=== PATIENT | male | born 1960 | race Caucasian/White ===

== ENCOUNTER 2020-07-10 12:16 | Inpatient (IN) | payer MEDICARE, MEDICAID ==
[~2020-07-10] VITALS: Ht 162.6 cm; Wt 55.8 kg
[~2020-07-10 12:16] MED LIST: ABIL10 PO; ASPI-1497 PO; ATEN50TA PO; BENA20TA10 PO; CLON0.2T PO; DOCU-150 PO; GLIP10TA10 MT; HYDR100T26 PO; LEVE500T19 PO; OMEP20CA14 PO; PARO40TA PO; PHEN100C12 PO; PRAV40TA58 PO; SEVE800T8 PO; VENL37.586 PO
[2020-07-10] MEDS ORDERED: SODIUM CHLORIDE 0.9% 1,000 ML IV ONE (12:45)
[2020-07-10 13:44] LABS: BASOPHILS % 0.6 % (0.0-2.0); EOSINOPHILS % 0.1 % (0.0-5.0); MEAN CORPUSCULAR HEMOGLOBIN 32.2 pg (28.0-32.0); MEAN CORPUSCULAR VOLUME 96.7 fL (80.0-94.0); MEAN PLATELET VOLUME 10.2 fl (7.4-10.4); MONOCYTES % 5.7 % (2.0-8.0); NEUTROPHILS % 85.6 % (40.0-76.0); PLATELET 130 x1000/uL (130-400); RED BLOOD CELL COUNT 2.03 mill/uL (4.7-6.1); RED CELL DISTRIBUTION WIDTH 16.6 % (11.6-14.6)
[2020-07-10 13:47] LABS: CHLORIDE 89 mEq/L (98-107)
[2020-07-10 13:54] LABS: INR 3.5; PROTHROMBIN TIME 34.5 sec (9.6-11.0)
[2020-07-10 14:06] LABS: HEMATOCRIT. 19.6 % (42.0-52.0); HEMOGLOBIN. 6.6 g/dL (14.0-18.0)
[2020-07-10] MEDS ORDERED: LEVOFLOXACIN 500MG PREMIX 100 ML IV ONE (15:30)
[2020-07-10 17:35] VITALS: BP 93/52
[2020-07-10] MEDS ORDERED: MAGNESIUM/ALUMINUM HYDROXIDE/SIMETHICONE 30ML UDC PO PRN (18:45)
[2020-07-10] MEDS ORDERED: DIPHENHYDRAMINE 50MG/ML VIAL IV PRN (18:45)
[2020-07-10] MEDS ORDERED: ACETAMINOPHEN 325MG TABLET PO PRN ×2 (18:45)
[2020-07-10] MEDS ORDERED: ZOLPIDEM TARTRATE 5MG TABLET PO PRN (18:45)
[2020-07-10] MEDS ORDERED: DEXTROSE 50% WATER 50ML SYRINGE IV PRN (18:45)
[2020-07-10] MEDS ORDERED: ONDANSETRON HCL 4MG/2ML INJ IV PRN (18:45)
[2020-07-10 20:00] VITALS: BP 138/67
[2020-07-10] MEDS ORDERED: EPOETIN ALFA-EPBX 4,000 UNIT/ML VIAL SUBCUT SCH (21:00)
[2020-07-10] MEDS: OMEPRAZOLE 20MG CAPSULE EXTENDED RELEASE PO SCH (21:48)
[2020-07-10] MEDS: LEVETIRACETAM 500MG/5ML CUP PO SCH (21:48)
[2020-07-10] MEDS: PHENYTOIN SODIUM EXTENDED 100MG CAPSULE PO SCH (21:48)
[2020-07-10] MEDS: BLOOD SUGAR DIAGNOSTIC STRIP TEST SCH (21:58)
[2020-07-10] MEDS: INSULIN LISPRO 100 UNITS/ML SUBCUT SCH (22:14)
[2020-07-10] MEDS: SODIUM CHLORIDE 0.9% INJ 3ML FLUSH IVF SCH (22:16)
[2020-07-11] VITALS (12 sets, daily range): BP systolic 130–164; BP diastolic 53–77
[2020-07-11 05:04] LABS: CHLORIDE 92 mEq/L (98-107)
[2020-07-11] MEDS: OMEPRAZOLE 20MG CAPSULE EXTENDED RELEASE PO SCH ×2 (06:18→22:12)
[2020-07-11] MEDS: PHENYTOIN SODIUM EXTENDED 100MG CAPSULE PO SCH ×3 (06:18→22:12)
[2020-07-11] MEDS: SEVELAMER CARBONATE 800 MG TABLET PO SCH ×3 (06:18→17:11)
[2020-07-11] MEDS: BLOOD SUGAR DIAGNOSTIC STRIP TEST SCH ×4 (06:19→22:13)
[2020-07-11] MEDS: SODIUM CHLORIDE 0.9% INJ 3ML FLUSH IVF SCH ×3 (06:21→22:13)
[2020-07-11 06:50] LABS: BASOPHILS % 0.4 % (0.0-2.0); EOSINOPHILS % 0.3 % (0.0-5.0); LYMPHOCYTES % 8.1 % (20.0-50.0); MEAN CORPUSCULAR VOLUME 94.9 fL (80.0-94.0); MEAN PLATELET VOLUME 9.8 fl (7.4-10.4); NEUTROPHILS % 87.2 % (40.0-76.0); PLATELET 130 x1000/uL (130-400); RED BLOOD CELL COUNT 2.03 mill/uL (4.7-6.1); RED CELL DISTRIBUTION WIDTH 16.4 % (11.6-14.6)
[2020-07-11 06:57] LABS: HEMATOCRIT. 19.2 % (42.0-52.0); HEMOGLOBIN. 6.5 g/dL (14.0-18.0)
[2020-07-11] MEDS: INSULIN LISPRO 100 UNITS/ML SUBCUT SCH ×4 (07:10→21:00)
[2020-07-11] MEDS: PAROXETINE HCL 10MG TABLET PO SCH (08:41)
[2020-07-11] MEDS: LEVETIRACETAM 500MG/5ML CUP PO SCH ×2 (08:41→22:13)
[2020-07-11] MEDS: ARIPIPRAZOLE 5MG TABLET PO SCH (08:42)
[2020-07-11] MEDS: VENLAFAXINE HCL 37.5MG SR CAPSULE 24HR PO SCH (08:42)
[2020-07-11] MEDS ORDERED: CEFTRIAXONE 1 G PREMIX 50 ML IV SCH (18:15)
[2020-07-11] MEDS ORDERED: DEXAMETHASONE 10 MG/ML VIAL IV SCH (18:30)
[2020-07-11] MEDS: DEXAMETHASONE 10 MG/ML VIAL IV SCH ×2 (18:48→22:12)
[2020-07-11] MEDS: CLONIDINE 0.1MG TABLET PO PRN (22:12)
[2020-07-11] MEDS: AZITHROMYCIN 500 MG in DEXT 5% WATER 250 ML IV SCH (22:14)
[2020-07-12] VITALS: BP 153/73
[2020-07-12 04:00] VITALS: BP 149/70
[2020-07-12] MEDS: SODIUM CHLORIDE 0.9% INJ 3ML FLUSH IVF SCH ×3 (05:22→23:51)
[2020-07-12] MEDS: PHENYTOIN SODIUM EXTENDED 100MG CAPSULE PO SCH ×3 (06:06→23:51)
[2020-07-12] MEDS: SEVELAMER CARBONATE 800 MG TABLET PO SCH ×3 (06:24→16:27)
[2020-07-12] MEDS: OMEPRAZOLE 20MG CAPSULE EXTENDED RELEASE PO SCH ×2 (06:24→21:23)
[2020-07-12] MEDS: BLOOD SUGAR DIAGNOSTIC STRIP TEST SCH ×4 (06:24→21:25)
[2020-07-12] MEDS: INSULIN LISPRO 100 UNITS/ML SUBCUT SCH ×4 (06:25→21:24)
[2020-07-12 07:29] LABS: HEMATOCRIT 33.7 % (42.0-52.0); HEMOGLOBIN 11.1 g/dL (14.0-18.0); MEAN CORPUSCULAR HEMOGLOBIN 30.7 pg (28.0-32.0); MEAN CORPUSCULAR VOLUME 93.2 fL (80.0-94.0); PLATELET 130 x1000/uL (130-400); RED BLOOD CELL COUNT 3.62 mill/uL (4.7-6.1); RED CELL DISTRIBUTION WIDTH 18.8 % (11.6-14.6)
[2020-07-12 08:00] VITALS: BP 155/76
[2020-07-12] MEDS: ARIPIPRAZOLE 5MG TABLET PO SCH (08:04)
[2020-07-12] MEDS: LEVETIRACETAM 500MG/5ML CUP PO SCH ×2 (08:04→21:23)
[2020-07-12] MEDS: VENLAFAXINE HCL 37.5MG SR CAPSULE 24HR PO SCH (08:04)
[2020-07-12] MEDS: PAROXETINE HCL 10MG TABLET PO SCH (08:04)
[2020-07-12 12:00] VITALS: BP 163/72
[2020-07-12] MEDS: CLONIDINE 0.1MG TABLET PO PRN (13:26)
[2020-07-12 16:00] VITALS: BP 138/72
[2020-07-12 20:00] VITALS: BP 100/45
[2020-07-12] MEDS ORDERED: EPOETIN ALFA-EPBX 10,000 UNIT/ML VIAL SUBCUT SCH (21:00)
[2020-07-12] MEDS: AZITHROMYCIN 500 MG in DEXT 5% WATER 250 ML IV SCH (21:23)
[2020-07-12] MEDS: DEXAMETHASONE 10 MG/ML VIAL IV SCH (21:23)
[2020-07-13] VITALS (7 sets, daily range): BP systolic 101–188; BP diastolic 20–81
[2020-07-13] MEDS: PHENYTOIN SODIUM EXTENDED 100MG CAPSULE PO SCH ×3 (05:52→21:13)
[2020-07-13] MEDS: SODIUM CHLORIDE 0.9% INJ 3ML FLUSH IVF SCH ×3 (05:52→21:13)
[2020-07-13] MEDS: OMEPRAZOLE 20MG CAPSULE EXTENDED RELEASE PO SCH ×2 (05:53→21:12)
[2020-07-13] MEDS: INSULIN LISPRO 100 UNITS/ML SUBCUT SCH ×4 (05:53→21:00)
[2020-07-13] MEDS: BLOOD SUGAR DIAGNOSTIC STRIP TEST SCH ×4 (05:53→21:13)
[2020-07-13] MEDS: SEVELAMER CARBONATE 800 MG TABLET PO SCH ×3 (06:25→17:04)
[2020-07-13] MEDS: ARIPIPRAZOLE 5MG TABLET PO SCH (08:41)
[2020-07-13] MEDS: PAROXETINE HCL 10MG TABLET PO SCH (08:41)
[2020-07-13] MEDS: LEVETIRACETAM 500MG/5ML CUP PO SCH ×2 (08:41→21:13)
[2020-07-13] MEDS: VENLAFAXINE HCL 37.5MG SR CAPSULE 24HR PO SCH (08:41)
[2020-07-13] MEDS: CLONIDINE 0.1MG TABLET PO PRN (08:42)
[2020-07-13] MEDS: ALBUTEROL 6.7GM HFA INHALER ORI SCH ×3 (13:34→19:00)
[2020-07-13] MEDS: DEXAMETHASONE 10 MG/ML VIAL IV SCH (21:13)
[2020-07-13] MEDS: AZITHROMYCIN 500 MG TABLET PO SCH (21:13)
[2020-07-14] MEDS: ALBUTEROL 6.7GM HFA INHALER ORI SCH ×4 (01:31→17:49)
[2020-07-14 04:00] VITALS: BP 120/34
[2020-07-14] MEDS: PHENYTOIN SODIUM EXTENDED 100MG CAPSULE PO SCH ×3 (06:17→21:18)
[2020-07-14] MEDS: OMEPRAZOLE 20MG CAPSULE EXTENDED RELEASE PO SCH ×2 (06:17→21:05)
[2020-07-14] MEDS: SEVELAMER CARBONATE 800 MG TABLET PO SCH ×3 (06:17→17:41)
[2020-07-14] MEDS: BLOOD SUGAR DIAGNOSTIC STRIP TEST SCH ×4 (06:17→21:06)
[2020-07-14] MEDS: SODIUM CHLORIDE 0.9% INJ 3ML FLUSH IVF SCH ×3 (06:18→21:18)
[2020-07-14] MEDS: INSULIN LISPRO 100 UNITS/ML SUBCUT SCH ×4 (06:29→21:00)
[2020-07-14 08:00] VITALS: BP 137/33
[2020-07-14] MEDS: PAROXETINE HCL 10MG TABLET PO SCH (09:13)
[2020-07-14] MEDS: LEVETIRACETAM 500MG/5ML CUP PO SCH ×2 (09:13→21:05)
[2020-07-14] MEDS: VENLAFAXINE HCL 37.5MG SR CAPSULE 24HR PO SCH (09:14)
[2020-07-14] MEDS: ARIPIPRAZOLE 5MG TABLET PO SCH (09:14)
[2020-07-14 12:00] VITALS: BP 131/27
[2020-07-14 16:00] VITALS: BP 121/36
[2020-07-14 20:00] VITALS: BP 150/76
[2020-07-14] MEDS: DEXAMETHASONE 10 MG/ML VIAL IV SCH (21:05)
[2020-07-14] MEDS: AZITHROMYCIN 500 MG TABLET PO SCH (21:05)
[2020-07-15] VITALS: BP 150/94
[2020-07-15 04:00] VITALS: BP 156/66
[2020-07-15] MEDS: ALBUTEROL 6.7GM HFA INHALER ORI SCH ×4 (06:00→16:51)
[2020-07-15] MEDS: SODIUM CHLORIDE 0.9% INJ 3ML FLUSH IVF SCH ×3 (06:00→21:57)
[2020-07-15] MEDS: INSULIN LISPRO 100 UNITS/ML SUBCUT SCH ×4 (06:03→21:58)
[2020-07-15] MEDS: BLOOD SUGAR DIAGNOSTIC STRIP TEST SCH ×4 (06:03→21:58)
[2020-07-15] MEDS: PHENYTOIN SODIUM EXTENDED 100MG CAPSULE PO SCH ×3 (06:15→21:57)
[2020-07-15] MEDS: SEVELAMER CARBONATE 800 MG TABLET PO SCH ×3 (06:15→16:50)
[2020-07-15] MEDS: OMEPRAZOLE 20MG CAPSULE EXTENDED RELEASE PO SCH ×2 (06:15→21:57)
[2020-07-15 08:00] VITALS: BP 128/30
[2020-07-15] MEDS: VENLAFAXINE HCL 37.5MG SR CAPSULE 24HR PO SCH (09:11)
[2020-07-15] MEDS: ARIPIPRAZOLE 5MG TABLET PO SCH (09:11)
[2020-07-15] MEDS: LEVETIRACETAM 500MG/5ML CUP PO SCH ×2 (09:11→21:57)
[2020-07-15] MEDS: PAROXETINE HCL 10MG TABLET PO SCH (09:11)
[2020-07-15 12:00] VITALS: BP 165/86
[2020-07-15] MEDS: CLONIDINE 0.1MG TABLET PO PRN (13:18)
[2020-07-15 16:00] VITALS: BP 152/38
[2020-07-15 20:00] VITALS: BP 150/72
[2020-07-15] MEDS: DEXAMETHASONE 10 MG/ML VIAL IV SCH (21:56)
[2020-07-15] MEDS: AZITHROMYCIN 500 MG TABLET PO SCH (21:57)
[2020-07-16 00:05] VITALS: BP 165/81
[2020-07-16] MEDS: CLONIDINE 0.1MG TABLET PO PRN ×2 (00:42→21:05)
[2020-07-16] MEDS: ALBUTEROL 6.7GM HFA INHALER ORI SCH ×4 (00:44→17:19)
[2020-07-16 04:00] VITALS: BP 153/70
[2020-07-16] MEDS: PHENYTOIN SODIUM EXTENDED 100MG CAPSULE PO SCH ×3 (06:23→21:03)
[2020-07-16] MEDS: OMEPRAZOLE 20MG CAPSULE EXTENDED RELEASE PO SCH ×2 (06:23→21:03)
[2020-07-16] MEDS: SEVELAMER CARBONATE 800 MG TABLET PO SCH ×3 (06:23→17:18)
[2020-07-16] MEDS: SODIUM CHLORIDE 0.9% INJ 3ML FLUSH IVF SCH ×3 (06:25→21:03)
[2020-07-16] MEDS: INSULIN LISPRO 100 UNITS/ML SUBCUT SCH ×4 (06:25→21:23)
[2020-07-16] MEDS: BLOOD SUGAR DIAGNOSTIC STRIP TEST SCH ×4 (06:26→21:03)
[2020-07-16 08:00] VITALS: BP 107/23
[2020-07-16] MEDS: PAROXETINE HCL 10MG TABLET PO SCH (08:45)
[2020-07-16] MEDS: LEVETIRACETAM 500MG/5ML CUP PO SCH ×2 (08:45→21:03)
[2020-07-16] MEDS: VENLAFAXINE HCL 37.5MG SR CAPSULE 24HR PO SCH (08:45)
[2020-07-16] MEDS: ARIPIPRAZOLE 5MG TABLET PO SCH (08:45)
[2020-07-16 12:00] VITALS: BP 137/40
[2020-07-16 16:00] VITALS: BP 139/29
[2020-07-16 20:00] VITALS: BP 164/77
[2020-07-16] MEDS: DEXAMETHASONE 10 MG/ML VIAL IV SCH (21:03)
[2020-07-17] VITALS: BP 152/84
[2020-07-17] MEDS: ALBUTEROL 6.7GM HFA INHALER ORI SCH ×4 (00:03→19:11)
[2020-07-17 04:00] VITALS: BP 158/79
[2020-07-17] MEDS: PHENYTOIN SODIUM EXTENDED 100MG CAPSULE PO SCH ×3 (05:52→21:19)
[2020-07-17] MEDS: SODIUM CHLORIDE 0.9% INJ 3ML FLUSH IVF SCH ×3 (05:52→21:19)
[2020-07-17] MEDS: BLOOD SUGAR DIAGNOSTIC STRIP TEST SCH ×4 (05:53→21:10)
[2020-07-17] MEDS: OMEPRAZOLE 20MG CAPSULE EXTENDED RELEASE PO SCH ×2 (05:53→21:19)
[2020-07-17] MEDS: SEVELAMER CARBONATE 800 MG TABLET PO SCH ×3 (06:08→16:55)
[2020-07-17] MEDS: INSULIN LISPRO 100 UNITS/ML SUBCUT SCH ×4 (06:08→21:18)
[2020-07-17 06:17] LABS: CHLORIDE 96 mEq/L (98-107)
[2020-07-17 06:20] LABS: HEMATOCRIT. 31.7 % (42.0-52.0); HEMOGLOBIN. 10.3 g/dL (14.0-18.0); MEAN CORPUSCULAR HEMOGLOBIN 30.2 pg (28.0-32.0); MEAN PLATELET VOLUME 8.8 fl (7.4-10.4); PLATELET 164 x1000/uL (130-400); RED BLOOD CELL COUNT 3.41 mill/uL (4.7-6.1); RED CELL DISTRIBUTION WIDTH 18.5 % (11.6-14.6)
[2020-07-17 08:00] VITALS: BP 142/37
[2020-07-17] MEDS: LEVETIRACETAM 500MG/5ML CUP PO SCH ×2 (08:28→21:18)
[2020-07-17] MEDS: PAROXETINE HCL 10MG TABLET PO SCH (08:29)
[2020-07-17] MEDS: VENLAFAXINE HCL 37.5MG SR CAPSULE 24HR PO SCH (08:29)
[2020-07-17] MEDS: ARIPIPRAZOLE 5MG TABLET PO SCH (08:29)
[2020-07-17 11:55] LABS: NUCLEATED RED BLOOD CELLS 1 /100 WBC; PLATELET ESTIMATE NORMAL
[2020-07-17 12:00] VITALS: BP 132/22
[2020-07-17] MEDS ORDERED: BISACODYL 10MG SUPP PR NR (15:30)
[2020-07-17 16:00] VITALS: BP 114/23
[2020-07-17 20:00] VITALS: BP 147/58
[2020-07-17] MEDS: DEXAMETHASONE 10 MG/ML VIAL IV SCH (21:19)
[2020-07-18] VITALS (7 sets, daily range): BP systolic 151–173; BP diastolic 73–86
[2020-07-18] MEDS: CLONIDINE 0.1MG TABLET PO PRN ×3 (00:28→08:44)
[2020-07-18] MEDS: ALBUTEROL 6.7GM HFA INHALER ORI SCH ×4 (00:29→17:01)
[2020-07-18] MEDS: PHENYTOIN SODIUM EXTENDED 100MG CAPSULE PO SCH ×2 (05:19→13:26)
[2020-07-18] MEDS: SODIUM CHLORIDE 0.9% INJ 3ML FLUSH IVF SCH ×2 (05:19→13:25)
[2020-07-18] MEDS: OMEPRAZOLE 20MG CAPSULE EXTENDED RELEASE PO SCH (06:13)
[2020-07-18] MEDS: SEVELAMER CARBONATE 800 MG TABLET PO SCH ×3 (06:13→17:01)
[2020-07-18] MEDS: INSULIN LISPRO 100 UNITS/ML SUBCUT SCH ×3 (06:15→17:02)
[2020-07-18] MEDS: BLOOD SUGAR DIAGNOSTIC STRIP TEST SCH ×4 (06:40→21:00)
[2020-07-18] MEDS: LEVETIRACETAM 500MG/5ML CUP PO SCH (08:40)
[2020-07-18] MEDS: ARIPIPRAZOLE 5MG TABLET PO SCH (08:41)
[2020-07-18] MEDS: VENLAFAXINE HCL 37.5MG SR CAPSULE 24HR PO SCH (08:41)
[2020-07-18] MEDS: PAROXETINE HCL 10MG TABLET PO SCH (08:41)
[2020-07-19 00:08] VITALS: BP 123/65
[2020-07-19] MEDS: LEVETIRACETAM 500MG/5ML CUP PO SCH ×3 (00:54→21:47)
[2020-07-19] MEDS: INSULIN LISPRO 100 UNITS/ML SUBCUT SCH ×5 (00:54→21:52)
[2020-07-19] MEDS: OMEPRAZOLE 20MG CAPSULE EXTENDED RELEASE PO SCH ×3 (00:55→21:47)
[2020-07-19] MEDS: PHENYTOIN SODIUM EXTENDED 100MG CAPSULE PO SCH ×4 (00:55→21:47)
[2020-07-19] MEDS: DEXAMETHASONE 10 MG/ML VIAL IV SCH ×2 (00:55→21:50)
[2020-07-19] MEDS: SODIUM CHLORIDE 0.9% INJ 3ML FLUSH IVF SCH ×4 (00:55→21:51)
[2020-07-19] MEDS: ALBUTEROL 6.7GM HFA INHALER ORI SCH ×5 (00:56→23:54)
[2020-07-19 04:00] VITALS: BP 136/80
[2020-07-19] MEDS: BLOOD SUGAR DIAGNOSTIC STRIP TEST SCH ×4 (06:03→21:50)
[2020-07-19] MEDS: SEVELAMER CARBONATE 800 MG TABLET PO SCH ×3 (06:11→17:39)
[2020-07-19 08:00] VITALS: BP 154/68
[2020-07-19] MEDS: ARIPIPRAZOLE 5MG TABLET PO SCH (09:07)
[2020-07-19] MEDS: VENLAFAXINE HCL 37.5MG SR CAPSULE 24HR PO SCH (09:07)
[2020-07-19] MEDS: PAROXETINE HCL 10MG TABLET PO SCH (09:08)
[2020-07-19 12:00] VITALS: BP 169/88
[2020-07-19 16:00] VITALS: BP 143/64
[2020-07-19 20:00] VITALS: BP 164/85
[2020-07-19] MEDS ORDERED: EPOETIN ALFA-EPBX 10,000 UNIT/ML VIAL SUBCUT SCH (21:00)
[2020-07-19] MEDS: CLONIDINE 0.1MG TABLET PO PRN (21:47)
[2020-07-20] VITALS: BP 152/83
[2020-07-20 04:00] VITALS: BP 183/87
[2020-07-20] MEDS: PHENYTOIN SODIUM EXTENDED 100MG CAPSULE PO SCH ×3 (05:33→22:35)
[2020-07-20] MEDS: SODIUM CHLORIDE 0.9% INJ 3ML FLUSH IVF SCH ×3 (05:33→22:36)
[2020-07-20] MEDS: CLONIDINE 0.1MG TABLET PO PRN (05:34)
[2020-07-20] MEDS: SEVELAMER CARBONATE 800 MG TABLET PO SCH ×3 (05:34→16:51)
[2020-07-20] MEDS: OMEPRAZOLE 20MG CAPSULE EXTENDED RELEASE PO SCH ×2 (05:34→22:35)
[2020-07-20] MEDS: ALBUTEROL 6.7GM HFA INHALER ORI SCH ×3 (05:35→18:00)
[2020-07-20] MEDS: INSULIN LISPRO 100 UNITS/ML SUBCUT SCH ×4 (05:35→22:37)
[2020-07-20] MEDS: BLOOD SUGAR DIAGNOSTIC STRIP TEST SCH ×4 (05:36→21:00)
[2020-07-20 08:00] VITALS: BP 165/82
[2020-07-20] MEDS: ARIPIPRAZOLE 5MG TABLET PO SCH (09:59)
[2020-07-20] MEDS: VENLAFAXINE HCL 37.5MG SR CAPSULE 24HR PO SCH (09:59)
[2020-07-20] MEDS: LEVETIRACETAM 500MG/5ML CUP PO SCH ×2 (09:59→22:35)
[2020-07-20] MEDS: PAROXETINE HCL 10MG TABLET PO SCH (09:59)
[2020-07-20 12:00] VITALS: BP 164/72
[2020-07-20 16:00] VITALS: BP 143/66
[2020-07-20 20:00] VITALS: BP 169/82
[2020-07-20] MEDS: DEXAMETHASONE 10 MG/ML VIAL IV SCH (22:36)
[2020-07-21] VITALS: BP 156/81
[2020-07-21] MEDS: ALBUTEROL 6.7GM HFA INHALER ORI SCH ×2 (01:05→05:46)
[2020-07-21 04:00] VITALS: BP 147/82
[2020-07-21] MEDS: PHENYTOIN SODIUM EXTENDED 100MG CAPSULE PO SCH (05:22)
[2020-07-21] MEDS: OMEPRAZOLE 20MG CAPSULE EXTENDED RELEASE PO SCH (05:44)
[2020-07-21] MEDS: SODIUM CHLORIDE 0.9% INJ 3ML FLUSH IVF SCH (05:46)
[2020-07-21] MEDS: SEVELAMER CARBONATE 800 MG TABLET PO SCH (06:20)
[2020-07-21] MEDS: BLOOD SUGAR DIAGNOSTIC STRIP TEST SCH (06:21)
[2020-07-21] MEDS: INSULIN LISPRO 100 UNITS/ML SUBCUT SCH (06:30)
[2020-07-21 08:00] VITALS: BP 176/87
[2020-07-21] MEDS: LEVETIRACETAM 500MG/5ML CUP PO SCH (09:18)
[2020-07-21] MEDS: VENLAFAXINE HCL 37.5MG SR CAPSULE 24HR PO SCH (09:19)
[2020-07-21] MEDS: ARIPIPRAZOLE 5MG TABLET PO SCH (09:19)
[2020-07-21] MEDS: PAROXETINE HCL 10MG TABLET PO SCH (09:19)
[2020-07-21 11:07] VITALS: BP 154/145
== END 2020-07-21 11:40 | disposition home or self-care (01) | DRG 871 ==
LOC: ER 12:16 → 7EST 15:00 → EDBEDREQ 15:01 → ENRESERV 15:31
PROVIDERS: ADMIT Internal Medicine; ATTEND Internal Medicine
PROC: 5A1D70Z Performance of Urinary Filtration, Intermittent, Less than 6 Hours Per Day (ICD-10-PCS; 2020-07-10)
PROC: 30233N1 Transfusion of Nonautologous Red Blood Cells into Peripheral Vein, Percutaneous Approach (ICD-10-PCS; principal; 2020-07-11)
PROC: 5A1D70Z Performance of Urinary Filtration, Intermittent, Less than 6 Hours Per Day (ICD-10-PCS; 2020-07-13)
PROC: 5A1D70Z Performance of Urinary Filtration, Intermittent, Less than 6 Hours Per Day (ICD-10-PCS; 2020-07-14)
PROC: 5A1D70Z Performance of Urinary Filtration, Intermittent, Less than 6 Hours Per Day (ICD-10-PCS; 2020-07-17)
PROC: 5A1D70Z Performance of Urinary Filtration, Intermittent, Less than 6 Hours Per Day (ICD-10-PCS; 2020-07-20)
DX: A41.89 Other specified sepsis (principal); I21.4 Non-ST elevation (NSTEMI) myocardial infarction; U07.1 COVID-19; N18.6 End stage renal disease; E43 Unspecified severe protein-calorie malnutrition; J12.89 Other viral pneumonia; J96.01 Acute respiratory failure with hypoxia; I50.43 Acute on chronic combined systolic (congestive) and diastolic (congestive) heart failure; E87.1 Hypo-osmolality and hyponatremia; K92.2 Gastrointestinal hemorrhage, unspecified; E87.2 Acidosis; R17 Unspecified jaundice; D68.9 Coagulation defect, unspecified; I13.2 Hypertensive heart and chronic kidney disease with heart failure and with stage 5 chronic kidney disease, or end stage renal disease; D64.9 Anemia, unspecified; E11.22 Type 2 diabetes mellitus with diabetic chronic kidney disease; E11.65 Type 2 diabetes mellitus with hyperglycemia; F20.9 Schizophrenia, unspecified; F32.9 Major depressive disorder, single episode, unspecified; G40.909 Epilepsy, unspecified, not intractable, without status epilepticus; H54.7 Unspecified visual loss; B97.89 Other viral agents as the cause of diseases classified elsewhere; E78.5 Hyperlipidemia, unspecified; R74.01 Elevation of levels of liver transaminase levels; D63.1 Anemia in chronic kidney disease; D69.6 Thrombocytopenia, unspecified; D72.819 Decreased white blood cell count, unspecified; E78.00 Pure hypercholesterolemia, unspecified; Z88.1 Allergy status to other antibiotic agents; Z88.0 Allergy status to penicillin; Z88.8 Allergy status to other drugs, medicaments and biological substances; Z78.9 Other specified health status; Z99.2 Dependence on renal dialysis; Z79.82 Long term (current) use of aspirin; Z79.899 Other long term (current) drug therapy; Z68.21 Body mass index [BMI] 21.0-21.9, adult
CPT/HCPCS: 36415; 71045; 80048; 80053; 80185; 82270; 82728; 82962; 83036; 83540; 83550; 83605; 84145; 84443; 84484; 85025; 85027; 86140; 86850; 86900; 86920; 87635; 93005; 99291; C1893; J0456; J0885; J1100; J1815; J1956; J7030; J7040; J7060; P9016